=== PATIENT | male | born 1970 | race Two or more races ===

== ENCOUNTER 2020-10-19 08:29 | Outpatient (REF) | payer OTHER, SELFPAY | END 2020-10-19 08:30 | disposition home or self-care (01) | LOC: HO.LAB 08:29 | PROVIDERS: Visit Provider Internal Medicine | DX: Z20.828 Contact with and (suspected) exposure to other viral communicable diseases (principal) | CPT/HCPCS: C9803; U0003 ==

== ENCOUNTER 2020-11-08 08:04 | Outpatient (REF) | payer MEDICAID, SELFPAY | END 2020-11-08 08:05 | disposition home or self-care (01) | LOC: HO.LAB 08:04 | PROVIDERS: Visit Provider Internal Medicine | DX: Z20.828 Contact with and (suspected) exposure to other viral communicable diseases (principal) | CPT/HCPCS: C9803; U0003 ==

== ENCOUNTER 2021-11-21 09:12 | Outpatient (REF) | payer MEDICAID, SELFPAY | END 2021-11-21 09:13 | disposition home or self-care (01) | LOC: HO.LAB 09:12 | PROVIDERS: Visit Provider Internal Medicine | DX: Z20.822 Contact with and (suspected) exposure to COVID-19 (principal) | CPT/HCPCS: C9803; U0003; U0005 ==

== ENCOUNTER 2021-12-22 09:37 | Emergency (ER) | payer MEDICAID, SELFPAY ==
[2021-12-22 09:51] VITALS: BP 146/99; PULSE 83; RESP 18; TEMP 36.7; O2SAT 96; BMI 30.8
--- NOTE | 2021-12-22 10:21 | ED_ITS ---
HPI - Skin/Abscess/Foreign Bdy General Chief complaint: Skin/Abscess/Foreign Body Stated complaint: r foot Time Seen by Provider: 12/22/21 10:21 Source: patient Mode of arrival: ambulatory Limitations: no limitations History of Present Illness HPI narrative: a 51-year-old male with a right foot rash. Patient states he has had this rash for about a week and it is itchy. patient had same rash 10 years ago, and was given a steroid shot, and the rash resolved. Related Data Previous Rx's Medication Instructions Recorded prednisone 20 mg tablet 60 mg PO DAILY 5 Days #15 tab 12/22/21 Allergies Allergy/AdvReac Type Severity Reaction Status Date / Time No Known Allergies Allergy Verified 12/22/21 09:53 Review of Systems Verdana 4l Constitutional: Verdana 4d Constitutional: Verdana 4d Verdana 4d Denies body ache(s), Denies chills, Denies fatigue, Denies fever(s), Denies headache(s), Denies malaise and Denies weakness Verdana 4l Eyes: Verdana 4d Verdana 4d Eyes: Verdana 4d Denies diplopia Verdana 4l ENT: Verdana 4d Denies vertigo, Denies dizziness, Denies otalgia, Denies headache(s), Denies mouth pain, Denies post nasal drip, Denies sinus pain, Denies sinus pressure, Denies sore throat and Denies throat swelling Verdana 4l Cardiovascular: Verdana 4d Cardiovascular: Verdana 4d Verdana 4d Denies chest pain, Denies syncope, Denies leg edema, Denies lightheadedness, Denies Loss of Consciousness, Denies palpitations and Denies dyspnea Verdana 4l Respiratory: Verdana 4d Verdana 4d Respiratory: Verdana 4d Denies chest congestion, Denies cough and Denies dyspnea Verdana 4l Gastrointestinal: Verdana 4d Gastrointestinal: Verdana 4d Verdana 4d Denies abdominal pain, Denies hematochezia, Denies constipation, Denies diarrhea and Denies vomiting Verdana 4l Musculoskeletal: Verdana 4d Musculoskeletal: Verdana 4d Verdana 4d Reports no additional musculoskeletal complaints Verdana 4l Integumentary/Breasts: Verdana 4d Skin/Breast: Verdana 4d Verdana 4d Reports rash Verdana 4l Neurologic: Verdana 4d Denies confusion, Denies vertigo, Denies dizziness, Denies syncope, Denies headache(s) and Denies weakness Verdana 4l Psychiatric: Verdana 4d Verdana 4d Psychiatric: Verdana 4d Denies anxiety, Denies confusion and Denies depression Verdana 4l Endocrine: Verdana 4d Verdana 4d Endocrine: Verdana 4d Denies fatigue and Denies palpitations Verdana 4l Allergic/Immunologic: Verdana 4d Allergic/Immunologic: Verdana 4d Verdana 4d Denies throat swelling PMFSH Past Medical History Medical History No known health problems Social History Social History Advance Directives: No Advance Directives Information Provided: No Physical Exam Verdana 4l Vital Signs: Verdana 4d Verdana 4d Vital Signs: Verdana 4d Verdana 4Bd Last Vital Signs Verdana 4d 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 Temp 98.0 F 12/22/21 09:51 Gas Furnace Installer New 4d Pulse 83 12/22/21 09:51 Gas Furnace Installer New 4d Resp 18 12/22/21 09:51 BP 146/99 H 12/22/21 09:51 Pulse Ox 96 12/22/21 09:51 BMI result Body Mass Index 30.8 Const: General: No confusion Nutritional Appearance: well nourished Orientation/consciousness: No confusion Limitations: no limitations HENMT: Head: Yes normal to inspection, Yes normocephalic and Yes atraumatic Ears: hearing grossly normal bilaterally, external ears normal, TM's normal bilatera lly and EAC's normal General nose exam: Normal external nose present Face and sinus: Yes normal facial exam and Yes sinuses nontender Mouth: Normal oral and palatal mucosa present Throat: Yes posterior oropharynx normal Eyes: Conjunctivae: conjunctivae normal Pupils: Equal, round and reactive pupils present EOM: EOMs intact bilaterally Neck: Neck: Yes full ROM, Yes no lymphadenopathy and Yes supple Resp: Effort & Inspection: normal respiratory effort and able to speak in complete sentences Auscultation: clear to auscultation bilaterally, no crackles, no rales, no rhonchi and no wheezes Cardio: Rate: regular rate Rhythm: regular rhythm Heart sounds: S1 normal heart sound present and S2 normal heart sound present GI: Inspection: Yes normal to inspection Palpation (GI): Soft to palpation, nontender, no guarding and not rigid Percussion: Yes normal to percussion Auscultation: normal bowel sounds Skin: Rashes: rashes noted maculopapular rash right lateral foot Neuro: General: No confusion Cranial nerves: Yes Equal, round and reactive pupils present Extrem: General: Yes normal to inspection and Yes full ROM Psych: Appearance: grossly normal Affect: normal affect Attitude: cooperative Thought process: Normal thought process present Course Course Course Narrative: 51-year-old with a week of itchy rash on his medial right foot. Treated with prednisone, follow-up with Dermatology. Return precautions given Discharge Plan Discharge Clinical Impression: Rash and nonspecific skin eruption Patient Disposition: Home, Self-Care Instructions: Acute Rash (ED) Additional Instructions: Please call Dermatology at [phone] I have referreed you to them, but please call them also for an appointment. In the meantime, take the prednisone I prescribed for the next 5 days, take it in the morning. If you have fevers, worsening pain, please return to be seen Prescriptions: New prednisone 20 mg tablet 60 mg PO DAILY 5 Days Qty: 15 0RF Referrals: Joey Jacob MD [Physician] - 2 days Stand Alone Forms: Work/School Release Interventions: ED Discharge Assessment Last Done: 12/22/21 10:41 Discharge Date/Time: 12/22/21 10:41
== END 2021-12-22 10:41 | disposition home or self-care (01) ==
PROVIDERS: Emergency Provider Emergency Medicine; PCP Internal Medicine
DX: R21 Rash and other nonspecific skin eruption (principal)
CPT/HCPCS: 99283

== ENCOUNTER 2021-12-28 10:48 | Outpatient (REF) | payer MEDICAID, SELFPAY ==
[2021-12-28 14:07] LABS: Basophils Absolute Auto 0.1 X10*3/uL (0.0-0.2); Basophils Percent Auto 0.3 % (0-2); Eosinophils Absolute Auto 0.1 X10*3/uL (0.0-0.4); Hematocrit 49.4 % (42.0-52.0); Hemoglobin 16.7 g/dl (14.0-18.0); Imm Gran Abs Auto 0.15 X10*3/uL (0.00-0.03); Lymphocytes Absolute Auto 5.3 X10*3/uL (1.2-4.9); Lymphocytes Percent Auto 36.6 % (20-40); MANUAL DIFF FLAG SCAN; Mean Corpuscular HGB Conc 33.8 g/dl (31.0-36.0); Mean Corpuscular Hemoglobin 33.1 pg (27.0-33.0); Mean Corpuscular Volume 97.8 fL (80.0-98.0); Mean Platelet Volume 10.4 fL (9.4-12.4); Monocytes Absolute Auto 1.5 X10*3/uL (0.1-1.2); Monocytes Percent Auto 10.3 % (2-11); Neutrophils Absolute Auto 7.3 x10*3/uL (2.0-8.3); Neutrophils Percent Auto 50.8 % (45-73); Platelet Count 256 X10*3/uL (160-400); Red Blood Count 5.05 X10*6/uL (4.60-5.80); SCAN SMEAR FLAG 1; White Blood Count 14.5 X10*3/uL (4.8-10.8)
[2021-12-28 14:37] LABS: SLIDE REVIEW VERIFIED; Thyroid Stimulating Hormone 2.44 uIU/mL (0.32-4.0)
[2021-12-28 14:39] LABS: Alanine Aminotransferase 32 U/L (0-40); Albumin Level 4.3 g/dL (3.5-5.0); Alkaline Phosphatase 73 U/L (39-117); Anion Gap 12 (12-20); Aspartate Amino Transferase 17 U/L (5-37); Bilirubin Total 0.8 mg/dL (0.0-1.0); Blood Urea Nitrogen 20 mg/dL (9-16); Calcium 9.6 mg/dL (8.4-10.2); Carbon Dioxide 27 mmol/L (22-29); Chloride 107 mmol/L (96-108); Cholesterol 211 mg/dL; Estimated Glomerular Filt Rate > 60; Glucose Fasting 84 mg/dL (60-99); HDL Cholesterol 51 mg/dL; LDL Cholesterol Calculated 127 mg/dl; Sodium 142 mmol/L (135-145); Total Protein 7.1 g/dL (6.5-8.0); Triglycerides 167 mg/dL
[2021-12-28 14:48] LABS: Amphetamine Screen Urine Not Detected (Not Detect); Barbiturates, Urine Not Detected (Not Detect); Benzodiazepines Screen Urine Not Detected (Not Detect); Cannabinoid Screen Urine Not Detected (Not Detect); Cocaine Screen Urine Not Detected (Not Detect); Fentanyl, urine Not Detected (Not Detect); Opiate Screen Urine Not Detected (Not Detect); Phencyclidine Screen Urine Not Detected (Not Detect)
== END 2021-12-28 10:49 | disposition home or self-care (01) ==
LOC: HO.10HDL 10:48
PROVIDERS: Visit Provider Internal Medicine
DX: Z00.00 Encounter for general adult medical examination without abnormal findings (principal); E78.2 Mixed hyperlipidemia; I10 Essential (primary) hypertension; R21 Rash and other nonspecific skin eruption
CPT/HCPCS: 80053; 80061; 80307; 84443; 85025

== ENCOUNTER 2022-02-24 09:24 | Outpatient (REF) | payer OTHER, SELFPAY ==
[2022-02-24 10:18] LABS: Hemoglobin 16.3 g/dl (14.0-18.0); Mean Corpuscular HGB Conc 34.7 g/dl (31.0-36.0); Mean Corpuscular Hemoglobin 33.5 pg (27.0-33.0); Mean Corpuscular Volume 96.7 fL (80.0-98.0); Mean Platelet Volume 10.3 fL (9.4-12.4); Platelet Count 219 X10*3/uL (160-400); Red Blood Count 4.86 X10*6/uL (4.60-5.80); Red Cell Distribution Width 12.4 % (11.0-16.0); White Blood Count 9.1 X10*3/uL (4.8-10.8)
[2022-02-24 10:43] LABS: Alanine Aminotransferase 26 U/L (0-40); Albumin Level 4.4 g/dL (3.5-5.0); Alkaline Phosphatase 70 U/L (39-117); Anion Gap 10 (12-20); Aspartate Amino Transferase 20 U/L (5-37); Blood Urea Nitrogen 16 mg/dL (9-16); Calcium 9.8 mg/dL (8.4-10.2); Carbon Dioxide 26 mmol/L (22-29); Chloride 107 mmol/L (96-108); Cholesterol 218 mg/dL; Estimated Glomerular Filt Rate > 60; Glucose Fasting 119 mg/dL (60-99); HDL Cholesterol 42 mg/dL; LDL Cholesterol Calculated 113 mg/dl; Potassium 4.3 mmol/L (3.3-5.1); Sodium 139 mmol/L (135-145); Total Protein 7.3 g/dL (6.5-8.0); Triglycerides 319 mg/dL
[2022-02-24 11:03] LABS: Prostate Specific Antigen Scr 1.26 ng/mL (<0.05-4.0)
[2022-02-24 11:03] LABS: Appearance Urine CLEAR; Color Urine YELLOW; Glucose Urine UA NEG (NEG); Leukocyte Esterase Urine NEG (NEG); Nitrite Urine NEG (NEG); PH 6.5 (5.0-8.0); Specific Gravity - Urine 1.015 (1.005-1.025); UACC Culture Trigger NO; Urine Blood TRACE (NEG); Urine Ketones NEG (NEG); Urine Protein NEG (NEG-TRACE)
[2022-02-24 11:14] LABS: Mucus Urine 1+ /LPF
[2022-02-24 11:15] LABS: WBC Urine 0-2 /HPF (0-4)
== END 2022-02-24 09:25 | disposition home or self-care (01) ==
LOC: HO.LAB 09:24
PROVIDERS: PCP Nurse Practitioner Family; Visit Provider Nurse Practitioner Family
DX: D72.829 Elevated white blood cell count, unspecified (principal); E78.00 Pure hypercholesterolemia, unspecified; R31.9 Hematuria, unspecified; I10 Essential (primary) hypertension
CPT/HCPCS: 36415; 80053; 80061; 81001; 81003; 84153; 85027

== ENCOUNTER 2023-09-22 10:53 | Emergency (ER) | payer OTHER, SELFPAY ==
--- NOTE | ~2023-09-22 | XR_ITS ---
EXAMINATION: XR FOOT, RIGHT CLINICAL INFORMATION: Foot pain fall yesterday COMPARISON: None available. TECHNIQUE: AP, lateral, and oblique views of the right foot. FINDINGS: No acute visible fracture or dislocation. Enthesopathy at the Achilles tendon insertion site. Joint spaces and alignment are otherwise maintained. Mild soft tissue prominence along the dorsum of the metatarsals. XR/XR foot RT min 3V IMPRESSION: 1. No acute visible fracture or dislocation. 2. Enthesopathy at the Achilles tendon insertion site. 3. Mild soft tissue prominence along the dorsum of the metatarsals.
[2023-09-22 10:56] VITALS: BP 150/96; PULSE 77; RESP 18; TEMP 36.6; O2SAT 99; BMI 33.2
--- NOTE | 2023-09-22 13:16 | ED_ITS ---
HPI - General Adult General Chief complaint: Extremity Injury, Lower Stated complaint: fell off ladder leg inj Time Seen by Provider: 09/22/23 12:33 Source: patient Mode of arrival: ambulatory Limitations: no limitations History of Present Illness HPI narrative: 53-year-old male presents to ED for right toe/ foot pain after falling off ladder. Patient states he was doing housework on the stairs. Patient states he was standing on the ladder on even uneven stairs and he fell off the ladder. Patient states he hit his right foot on the wall /stairs while trying to break his fall. Patient denies hitting head or loss of consciousness. Patient was not on top of the roof of his house. patient was not high up. patient fell unto his back. Patient was doing work in his basement. Patient states incident occurred yesterday. Patient states since incident no headache, nausea, vomiting, abdominal pain, neck pain, rectal bleeding, vomiting blood, coughing up blood, or bloody urine. Patient compliant is right foot pain. Related Data Home Medications Medication Instructions Recorded Confirmed clobetasol 0.05 % topical ointment g topical BID PRN 02/14/22 02/14/22 emollient combination no.32 1 appl topical QID PRN 02/14/22 02/14/22 (EpiCeram topical emulsion, extended release) hydroxyzine HCl 25 mg tablet 25 mg PO BEDTIME PRN 02/14/22 02/14/22 Previous Rx's Medication Instructions Recorded blood pressure monitor #1 ea 02/14/22 omeprazole 20 mg tablet,delayed 20 mg PO DAILY #30 tabs 02/14/22 release naproxen 500 mg tablet 500 mg PO BID PRN pain 7 days #14 09/22/23 tabs Allergies Allergy/AdvReac Type Severity Reaction Status Date / Time No Known Allergies Allergy Verified 09/22/23 10:56 Review of Systems 2 Review of Systems: Right foot pain Yes all other systems are reviewed and are negative PMFSH Past Medical History Medical History (Updated 09/23/23 @ 00:00 by Saul Yin) No known health problems Surgical History (Updated 02/14/22 @ 14:24 by BEVERLY Johnson) History of surgery Family History Family History (Updated 02/14/22 @ 14:25 by BEVERLY Johnson) Mother No problems noted. Father No problems noted. Social History Social History Housing: House Patient Tobacco Use Status: Current someday Tobacco user Tobacco use type: Cigarette Smoked in Last 30 Days: Yes e-Cigarette/Vaping Use: Never Used Second Hand Smoke Exposure: No Use of substances other than those prescribed or required for medical reasons: No Advance Directives: No Advance Directives Information Provided: Yes service: No Current occupational status: unemployed Cognitive needs: No Hearing needs: No Vision needs: No Physical Exam ED Vital Signs: Vital Signs - 24 hr 09/22/23 10:56 09/22/23 13:58 Temperature 98 F 97.2 F Pulse Rate 77 78 Respiratory Rate 18 16 Blood Pressure 150/96 H 140/98 H Pulse Oximetry 99 97 Oxygen Delivery Method Room Air Room Air BMI result Body Mass Index 33.2 Const General: cooperative, healthy appearing, comfortable, no acute distress, well developed, alert and awake Orientation/consciousness: oriented to person, oriented to place, oriented to time and patient oriented x3 HENMT Head: Yes normal to inspection, Yes No palpable skull fracture present, Yes normocephalic and Yes atraumatic Ears: hearing grossly normal bilaterally, external ears normal, TM's normal bilaterally, TM normal on the right, TM normal on the left, EAC's normal, mastoids normal and no periauricular adenopathy General nose exam: Normal external nose present and Normal nares present Face and sinus: Yes normal facial exam, Yes sinuses nontender and Yes face symmetric Mouth: Normal oral and palatal mucosa present, lip normal and tongue normal Throat: Yes posterior oropharynx normal, Yes tonsils normal and Yes uvula midline Eyes General: appearance normal, both eyes and all related structures Neck Neck: Yes normal visual inspection, Yes full ROM, Yes no lymphadenopathy, Yes no meningeal signs, Yes trachea midline, Yes supple, No anterior neck swelling and No tender Chest Chest palpation & inspection: normal inspection of the chest and normal palpation of entire chest wall Resp Effort & Inspection: normal respiratory effort and able to speak in complete sentences Auscultation: clear to auscultation bilaterally Cardio Jugular venous distension: no JVD Heart sounds: S1 normal heart sound present and S2 normal heart sound present GI Inspection: Yes normal to inspection and No abdominal wall ecchymosis Palpation (GI): Soft to palpation, not firm, nontender, no guarding and not rigid General: Yes no CVA tenderness Back/Spine/Pelvis Back: no CVA tenderness and No back tenderness Skin General skin exam: no rashes or lesions noted, elasticity normal and turgor normal Neuro General: oriented to person, oriented to place, oriented to time, patient oriented x3, gait normal, tone normal, moves all extremities, Normal light touch and pain sensation, no meningeal signs, no focal motor deficits, CN's II-XI intact bilaterally and normal sensation to monofilament Extrem General: Yes normal to inspection and Yes full ROM Ankle/foot/toe images: 2 1. positive for ecchymosis and tenderness on palpation. Negative for crepitus or obvious deformity. Motor/ neuro/vascular exam intact Psych Appearance: grossly normal, well kempt and not disheveled Medications Administered Discontinued Medications Generic Name Dose Route Start Last Admin Trade Name Freq PRN Reason Stop Dose Admin Ibuprofen 800 mg 09/22/23 13:43 09/22/23 14:04 Ibuprofen 800 Mg Tablet PO 09/22/23 13:44 800 mg ONCE ONE Administration Medical Decision Making Medical Decision Making MDM Narrative: 53-year-old male presents to ED for right foot pain after falling off ladder in his basement. Patient denies any head trauma or being on any blood thinners. Patient states no nausea, vomiting, headache, abdominal pain, neck pain, rectal bleeding, vomiting blood, coughing up blood, or bloody urine. Patient states fall occurred yesterday. Patient only complaint is right foot pain. x-ray ordered. 1:44pm: Xray of foot negative for fracture. whole body evlauted and negative for any signs of life threatening injury. Patient placed in samuel wrap and educated on ice. Differential Diagnosis Differential Diagnoses: The differential diagnosis associated with the presentation includes ( foot fracture, ankle dislocation, foot dislocation,) Independent Interpretation I performed an independent interpretation of an: Plain X-Ray Radiology Impression Discussion of test interpretation with radiology: I have reviewed the radiologist's reading. External Record Review External record reviewed: Other (Prior ED visit) Tests considered The following testing was considered but not selected: CT scan Prescription Management I considered prescription management with: Pain Medication Discharge Plan Discharge Clinical Impression: Contusion Patient Disposition: Home, Self-Care Instructions: Foot Contusion (ED) Additional Instructions: your x-rays came back negative for any fractures. Recommend rest, elevation, and ice and compression of right lower extremity / foot. Return to the ED immediately for any redness, warmth, pus discharge, foul odor, increased swelling, worsening blood loss discoloration, numbness / tingling, paralysis, chest pain, shortness of breath, headache, abdominal pain, nausea, vomiting, rectal bleeding, bloody urine, coughing blood, or any other concerning symptoms. Please follow-up with primary care provider Prescriptions: New naproxen 500 mg tablet 500 mg PO BID PRN (Reason: pain) 7 Days Qty: 14 0RF No Action hydroxyzine HCl 25 mg tablet 25 mg PO BEDTIME PRN clobetasol 0.05 % ointment topical BID PRN EpiCeram Emulsion, Extended Release 1 appl topical QID PRN Rx Instructions: do not apply within 4 hours prior to radiation therapy omeprazole 20 mg tablet,delayed release (DR/EC) 20 mg PO DAILY Qty: 30 0RF (DME) blood pressure monitor Kit See Rx Instructions .Route Qty: 1 0RF Rx Instructions: Check BP daily. Stand Alone Forms: Work/School Release Interventions: ED Discharge Assessment Last Done: 09/22/23 14:11 Discharge Date/Time: 09/22/23 14:15 Print Language: Lithuanian
[2023-09-22 13:58] VITALS: BP 140/98; PULSE 78; RESP 16; TEMP 36.2; O2SAT 97
[2023-09-22] MEDS: Ibuprofen 800 MG TABLET PO (14:04)
== END 2023-09-22 14:15 | disposition home or self-care (01) ==
PROVIDERS: Emergency Provider Student in an Organized Health Care Education/Training Program; PCP Internal Medicine
DX: S90.31XA Contusion of right foot, initial encounter (principal); W11.XXXA Fall on and from ladder, initial encounter; Y93.9 Activity, unspecified; Y92.9 Unspecified place or not applicable; Y99.9 Unspecified external cause status; Z79.899 Other long term (current) drug therapy; F17.210 Nicotine dependence, cigarettes, uncomplicated; Z71.6 Tobacco abuse counseling
CPT/HCPCS: 73630; 99284